=== PATIENT | female | born 1970 | race Caucasian/White ===

== ENCOUNTER 2018-11-04 06:00 | Emergency (ER) | payer OTHER ==
[~2018-11-04] VITALS: Wt 82.2 kg
[2018-11-04] MEDS ORDERED: ASPIRIN 325 MG TAB PO STA (06:15)
--- NOTE | 2018-11-04 07:26 | ERD ---
ER Documentation Chief Complaint Chief Complaint CHEST PRESSURE, DIZZINESS X'S 3 HOURS HPI 47-year-old female presents the emergency department complaining of dizziness and chest pain. Patient was in her usual state of health until this morning at which time she woke up with a nonspecific semi-vertiginous type dizziness. This was associated with no headache, focal weakness, numbness, difficulty speaking. Patient had no other neurologic symptoms but then developed a nonspecific discomfort about her chest. This was associated with no nausea, vomiting, fevers, chills, cough or hemoptysis. Upon arrival, she was complaining of a nonspecific but mild discomfort in the center part of her chest which did not radiate and had no other symptoms associated with it other than that as above. ROS All systems reviewed and are negative except as per history of present illness. PMhx/Soc Medical and Surgical Hx: pt denies Medical Hx, pt denies Surgical Hx Hx Alcohol Use: No Hx Substance Use: No Hx Tobacco Use: No Smoking Status: Never smoker FmHx Noncontributory with no history of heart disease Physical Exam Vitals Vital Signs Date Temp Pulse Resp B/P (MAP) Pulse Ox O2 O2 Flow FiO2 Time Delivery Rate 11/04/18 97.8 63 18 130/81 99 Room Air 06:10 (97) 11/04/18 97.8 58 18 134/75 99 06:03 (94) Physical Exam GENERAL: The patient is well developed and appropriate for usual state of health in no apparent distress HEENT: Pupils equal, round, and reactive to light. EOMI. There is no scleral icterus. NECK: C-spine is soft and supple, there is no meningismus. There is no cervical lymphadenopathy. LUNGS: Clear to auscultation bilaterally. There are no rales, wheezes or rhonchi. HEART: Regular rate and rhythm, no murmurs, clicks, rubs or gallops. ABDOMEN: Soft, non-tender, non-distended. There are bowel sounds in all four quadrants. No rebound or guarding. EXTREMITIES: There is no peripheral cyanosis or edema. No focal swelling or erythema. NEURO: The patient moves all four extremities with 5/5 strength. Cranial nerves II - XII are intact. No nystagmus is noted normal gait. Alert and oriented. Finger to nose is normal bilaterally. SKIN: There is no apparent rash or petechiae. HEME/LYMPHATIC: There is no evidence of excessive bruising or lymphedema. PSYCHIATRIC: The patient does not appear anxious or depressed. Result Diagram: 11/04/18 0631 11/04/18 0631 Results 24 hrs Laboratory Tests Test 11/04/18 06:31 White Blood Count 6.3 10^3/ul Red Blood Count 4.66 10^6/ul Hemoglobin 13.8 g/dl Hematocrit 41.5 % Mean Corpuscular Volume 89.1 fl Mean Corpuscular Hemoglobin 29.6 pg Mean Corpuscular Hemoglobin Concent 33.3 g/dl Red Cell Distribution Width 12.9 % Platelet Count 185 10^3/UL Mean Platelet Volume 11.2 fl Immature Granulocytes % 0.500 % Neutrophils % 53.7 % Lymphocytes % 34.6 % Monocytes % 8.9 % Eosinophils % 1.8 % Basophils % 0.5 % Nucleated Red Blood Cells % 0.0 /100WBC Immature Granulocytes # 0.030 10^3/ul Neutrophils # 3.4 10^3/ul Lymphocytes # 2.2 10^3/ul Monocytes # 0.6 10^3/ul Eosinophils # 0.1 10^3/ul Basophils # 0.0 10^3/ul Nucleated Red Blood Cells # 0.0 10^3/ul Sodium Level 139 mmol/L Potassium Level 3.7 mmol/L Chloride Level 100 mmol/L Carbon Dioxide Level 29 mmol/L Anion Gap 10 Blood Urea Nitrogen 15 mg/dl Creatinine 0.63 mg/dl Est Glomerular Filtrat Rate mL/min > 60 mL/min Glucose Level 99 mg/dl Calcium Level 9.3 mg/dl Total Bilirubin 1.6 mg/dl Direct Bilirubin 0.00 mg/dl Indirect Bilirubin 1.6 mg/dl Aspartate Amino Transf (AST/SGOT) 33 IU/L Alanine Aminotransferase (ALT/SGPT) 31 IU/L Alkaline Phosphatase 81 IU/L Troponin I < 0.012 ng/ml Total Protein 7.6 g/dl Albumin 4.4 g/dl Globulin 3.20 g/dl Albumin/Globulin Ratio 1.37 Lipase 56 U/L Current Medications Medications Dose Sig/Rafita Start Time Status Last (Trade) Ordered Route PRN Stop Time Admin Dose Reason Admin Aspirin 325 mg ONCE STAT 11/04/18 DC 11/04/18 (Aspirin) PO 06:15 11/04/18 06:35 06:17 Procedures/MDM Patient was taken to a room, seen and evaluated. Comfort measures were initiated. Diagnostic tests were ordered and reviewed. 3 LEAD RHYTHM STRIP: Normal sinus rhythm without ectopy EK lead EKG reviewed by myself: Normal Sinus Rhythm Normal [place] and intervals No ST elevation, depression, or T wave inversion Impression: Normal EKG RADIOLOGY: Reviewed with the radiologist REEVALUATION: 0720: Diagnostic tests were appreciated discussed with the patient. She remained neurologically normal and hemodynamic is stable and comfortable appearing. MED[employer] DECISION MAKIN-year-old female with no risk factors for ischemic heart disease, stroke or other high-risk concerns presents with nonspecific dizziness and nonspecific discomfort about her chest. Her evaluation today shows no evidence of stroke or central vertigo. Neurologically she is normal and her dizziness is nonspecific with no findings of significant electrolyte concerns, anemia or other high-risk issues that may make her dizzy. From the standpoint of her chest pain, she has no significant risk factors and a normal EKG making her very low risk for adverse cardiac event. At this time, she appears to be clinically reassured and seems appropriate for outpatient care. Departure Diagnosis: Primary Impression: Chest pain Condition: Stable Patient Instructions: Chest Pain, Uncertain Cause Additional Instructions: Consulte a lomeli mdico para el seguimiento segn lo discutido. Lleve kay copia de los resultados de lomeli prueba, si corresponde, a esta visita de seguimiento. Consulte a lomeli mdico o regrese aqu si jada sntomas no mejoran hyacinth se esperaba. En cualquier momento, regrese al departamento de emergencias por cualquier cambio o empeoramiento en jada sntomas. SHANTA PALENCIA Nov 04, 2018 07:26
[2018-11-04 07:38] VITALS: BP 114/77; PULSE 68; RESP 18
== END 2018-11-04 09:13 | disposition home or self-care (01) ==
LOC: E/R 06:00
DX: R07.89 Other chest pain (principal)
CPT/HCPCS: 36415; 71045; 80053; 83690; 84484; 85025; 93005; Z7502; Z7610

== ENCOUNTER 2019-03-16 01:51 | Emergency (ER) | payer OTHER ==
[~2019-03-16] VITALS: Ht 162.6 cm; Wt 82.0 kg
[~2019-03-16 01:51] MED LIST: IBUP-1542 PO
[2019-03-16 02:00] VITALS: Ht 162.6 cm; Wt 82.0 kg
[2019-03-16] MEDS ORDERED: SOD CHLORIDE 0.9% 1,000 ML IV STA (02:47)
[2019-03-16] MEDS ORDERED: METOCLOPRAMIDE 10 MG INJ IV STA (02:47)
[2019-03-16] MEDS ORDERED: KETOROLAC 60 MG INJ IM STA (02:47)
[2019-03-16 04:04] VITALS: BP 117/65; PULSE 57; RESP 20
== END 2019-03-16 04:06 | disposition home or self-care (01) ==
LOC: FTE 01:51
DX: R51 Headache (principal)
CPT/HCPCS: 81025; 96372; 96374; J1885; J2765; J7030; Z7502